=== PATIENT | female | born 1995 | race Caucasian/White ===

== ENCOUNTER 2017-01-02 03:35 | Emergency (ER) | payer MEDICAID ==
[~2017-01-02] VITALS: Ht 157.5 cm; Wt 52.2 kg
--- NOTE | 2017-01-02 03:45 | NUR ---
CALLED PT IN [place], NO REPONSE
--- NOTE | 2017-01-02 04:00 | NUR ---
CALLED PT IN [place], NO REPONSE
--- NOTE | 2017-01-02 04:35 | NUR ---
CALLED PT IN [place], NO REPONSE
[2017-01-02 05:01] VITALS: BP 121/77
[2017-01-02] MEDS ORDERED: METRONIDAZOLE 500 MG TABLET ONE (05:23)
[2017-01-02] MEDS ORDERED: CEFTRIAXONE 500 MG VIAL ONE (05:24)
[2017-01-02] MEDS ORDERED: AZITHROMYCIN 250 MG TABLET ONE (05:24)
[2017-01-02] MEDS ORDERED: LIDOCAINE /MPF 1% VIAL 5 ML VIAL ONE (05:24)
--- NOTE | 2017-01-02 05:24 | NUR ---
URINE SAMPLE SENT TO LAB.
[2017-01-02] MEDS ORDERED: CEFTRIAXONE 500 MG VIAL IM ONE (05:30)
[2017-01-02] MEDS ORDERED: METRONIDAZOLE 500 MG TABLET PO ONE (05:30)
[2017-01-02] MEDS ORDERED: AZITHROMYCIN 250 MG TABLET PO ONE (05:30)
[2017-01-02 05:33] LABS: APPEARANCE,URINE SL CLOUDY (CLEAR); BILIRUBIN,URINE NEGATIVE (NEGATIVE); BLOOD, URINE 1+ Ery/uL (NEGATIVE); COLOR,URINE YELLOW (YELLOW); KETONES,URINE NEGATIVE (NEGATIVE); LEUKOCYTE ESTERASE ,URINE NEGATIVE (NEGATIVE); NITRITE, URINE NEGATIVE (NEGATIVE); PROTEIN,URINE TRACE mg/dl (NEGATIVE); UGLUCOSE NEGATIVE (NEGATIVE); UROBILINOGEN,URINE 0.2 EU/dL (0.2)
[2017-01-02 05:46] LABS: BACTERIA,URINE 3+ /HPF (None Seen); SQUAMOUS EPITHELIAL CELL,UR Few /HPF (None Seen); WBC,URINE 0-2 /HPF (0-3)
[2017-01-02 05:47] LABS: PREGNANCY TEST URINE QUAL NEGATIVE (NEGATIVE)
--- NOTE | 2017-01-02 05:55 | NUR ---
PT LEFT WITHOUT DISCHARGE INSTRUCTIONS/ACI.
== END 2017-01-02 05:55 | disposition home or self-care (01) ==
LOC: ER 03:35
DX: Z20.2 Contact with and (suspected) exposure to infections with a predominantly sexual mode of transmission (principal); R82.99 Other abnormal findings in urine
CPT/HCPCS: 81001; 84703; 87086; 87491; 87591; 96372; 99284; A4606; J0696; J3490; Z7610; 81000-TC

== ENCOUNTER 2018-04-11 05:01 | Emergency (ER) | payer MEDICAID ==
[~2018-04-11] VITALS: Ht 152.4 cm; Wt 49.9 kg
[2018-04-11 05:19] VITALS: BP 110/59
--- NOTE | 2018-04-11 06:25 | NUR ---
Patient discharged to home in stable condition. Written and verbal after care instructions given. Patient verbalizes understanding of instruction.
== END 2018-04-11 06:26 | disposition home or self-care (01) ==
LOC: ER 05:03
DX: J03.90 Acute tonsillitis, unspecified (principal)
CPT/HCPCS: 99283; A4606; Z7610

== ENCOUNTER 2019-08-18 15:29 | Inpatient (IN) | payer MEDICAID ==
[~2019-08-18] VITALS: Ht 160 cm; Wt 72.6 kg
--- NOTE | 2019-08-18 17:02 | NUR ---
[id number] FROM THE STREETS C/O ABDOMINAL PAIN W NAUSEA AND VOMITING, PER EMS PT ADMITS TO HEROIN USE YESTERDAY. TO ER BED 4, HOOKED TO MONITOR, CHANGED TO HOSP GOWN, WARM BLAKET PROVIDED, AWAITING MD OZUNA.
--- NOTE | 2019-08-18 17:40 | NUR ---
ANIKA ESTEVES AT BEDSIDE
[2019-08-18] MEDS ORDERED: LORAZEPAM INJ 2 MG/ML VIAL IVP ONE (18:00)
[2019-08-18] MEDS ORDERED: ONDANSETRON HCL/PF 4 MG/2 ML VIAL IVP ONE (18:00)
[2019-08-18] MEDS ORDERED: IV NS 0.9% 1,000 ML BAG IV ONE ×4 (18:00→21:30)
[2019-08-18] MEDS ORDERED: ONDANSETRON HCL/PF 4 MG/2 ML VIAL ONE ×2 (18:06→21:45)
[2019-08-18] MEDS ORDERED: LORAZEPAM INJ 2 MG/ML VIAL ONE (18:06)
[2019-08-18 18:15] LABS: BASOPHILS % (AUTO) 1.2 % (0.0-2.0); EOSINOPHILS % (AUTO) 0.2 % (0.0-6.0); HEMATOCRIT 44 % (33-45); HEMOGLOBIN 14.1 g/dL (11.5-14.8); LYMPHOCYTES # (AUTO) 0.4 /CMM (0.8-4.8); LYMPHOCYTES % (AUTO) 11.4 % (20.0-44.0); MEAN CORPUSCULAR HGB CONC 32 g/dl (31.0-36.0); MEAN CORPUSCULAR VOLUME 78 fL (82-100); MONOCYTES % (AUTO) 0.7 % (2.0-12.0); NEUTROPHILS # (AUTO) 3.3 /CMM (1.8-8.9); NEUTROPHILS % (AUTO) 86.5 % (43.0-81.0); PLATELET COUNT (AUTO) 416 /CMM (150-450); RED BLOOD CELL COUNT(AUTO) 5.57 MIL/uL (4.0-5.2); WHITE BLOOD COUNT (AUTO) 3.8 K/uL (4.3-11.0)
[2019-08-18 18:37] LABS: ALANINE AMINOTRANSFERASE 17 U/L (12-78); ALBUMIN 2.6 g/dL (3.4-5.0); ALCOHOL, BLOOD < 3 mg/dL (0-0); ALKALINE PHOSPHATASE 124 U/L (46-116); ASPARTATE AMINOTRANSFERASE 18 U/L (15-37); BILIRUBIN,DIRECT 0.3 mg/dL (0.0-0.2); BILIRUBIN,TOTAL 0.8 mg/dL (0.2-1.0); CALCIUM, SERUM 8.9 mg/dL (8.5-10.1); CARBON DIOXIDE 18 mmol/L (21-32); CREATININE 2.1 mg/dL (0.6-1.3); GLUCOSE 91 mg/dL (74-106); TOTAL PROTEIN, SERUM 6.7 g/dL (6.4-8.2); UREA NITROGEN, BLOOD 20 mg/dL (7-18)
[2019-08-18 18:39] LABS: ACETAMINOPHEN 0 ug/ml (10-30); CHLORIDE 102 mmol/L (98-107); POTASSIUM 3.2 mmol/L (3.5-5.1); SODIUM SERUM 135 mmol/L (136-145)
[2019-08-18 18:45] LABS: EOSINOPHILS % (MANUAL) 1 % (0-4); LYMPHOCYTES % (MANUAL) 11 % (16-48); MONOCYTES % (MANUAL) 1 % (0-11.0); NEUTROPHILS % (MANUAL) 87 (42-76)
--- NOTE | 2019-08-18 19:38 | NUR ---
REPORT GIVEN TO LORETTA ELI FOR ANGEL
--- NOTE | 2019-08-18 19:55 | NUR ---
IN AND OUT CATH DONE. NO URINE OUTPUT NOTED. AND PA AWARE.
[2019-08-18] MEDS: LORAZEPAM INJ 2 MG/ML VIAL IV ONE ×2 (20:19→20:21)
[2019-08-18] MEDS: NALOXONE HCL 0.4 MG/ML AMPUL IV ONE ×2 (20:19→20:21)
[2019-08-18] MEDS ORDERED: KETOROLAC TROMETHAMINE INJ 60 MG/2 ML VIAL IM ONE (20:35)
--- NOTE | 2019-08-18 20:54 | NUR ---
PT TAKEN TO CT W/ RN
[2019-08-18] MEDS ORDERED: KETAMINE HCL(200MG/20ML) 10 MG/ML VIAL IV ONE (21:00)
--- NOTE | 2019-08-18 21:06 | NUR ---
PT BACK FROM CT W/ RT AND RN
[2019-08-18] MEDS ORDERED: PROPOFOL 100 ML ONE (21:17)
--- NOTE | 2019-08-18 21:19 | NUR ---
PT HAD AN EPISODE OF BILLOUS VOMMITING MODERATE AMOUNT. VERBAL ORDER FOR ZOFRAN 4MG IV X 1. NOTED AND CARRIED OUT
--- NOTE | 2019-08-18 21:21 | NUR ---
intubated 23 # lip et 7.5 bilat lung sound confirmed by
--- NOTE | 2019-08-18 21:50 | NUR ---
PT IS WAKING UP AND FIGHHTING VENT. MD WAS TA BEDSIDE. VERBAL ORDER RECEIVED TO GIVEN ANOTHER ETOMIDATE 20MO IV X 1. NOTED AND CARRIED OUT
[2019-08-18] MEDS ORDERED: PIPERACILLIN /TAZOBACTAM 3.375 G in IV D5W 50 ML IV ONE (22:00)
[2019-08-18] MEDS ORDERED: ONDANSETRON HCL/PF - ER 4 MG/2 ML VIAL IV ONE (22:00)
[2019-08-18] MEDS ORDERED: VANCOMYCIN 1 GM in IV D5W 250 ML IV ONE (22:00)
--- NOTE | 2019-08-18 22:01 | NUR ---
DR. WORRELL ON THE PHONE WITH DR. DEL TORO
[2019-08-18] MEDS ORDERED: MIDAZOLAM 50 MG/10 ML VIAL ONE (22:05)
[2019-08-18] MEDS: MIDAZOLAM HCL 100 MG in IV NS 0.9% 80 ML IV PRN ×3 (22:15→22:37)
--- NOTE | 2019-08-18 22:18 | NUR ---
etomidate 20mg ivp and succicholine 100mg ivp
--- NOTE | 2019-08-18 22:25 | NUR ---
PAGED CYLINDER HONER GEN SURGEON DR. VELA. DR. WORRELL ON PHONE WITH MIRIAN
[2019-08-18] MEDS ORDERED: PIPERACILLIN /TAZOBACTAM 3.375 G VIAL IV ONE (22:26)
[2019-08-18] MEDS ORDERED: FENTANYL CITRAT IV 2,500 MCG in IV NS 0.9% 200 ML IV PRN (22:30)
--- NOTE | 2019-08-18 22:47 | NUR ---
RT PATIENT WAS INTUBATED ON ER PER MD ORDER ON NOTED VENT SETTINGS .ALARMS ARE SET AND AND AUDIBLE. PATIENT TOLERATED CURRENT VENT SETTINGS . WILL CONTINUE TO MONITOR. Addendum: 08/18/19 at 2250 by LADONNA FRANCISCO RT Amended: Links added.
--- NOTE | 2019-08-18 22:49 | NUR ---
BED ASSIGNMENT 259
[2019-08-18] MEDS ORDERED: VANCOMYCIN 1 GM VIAL ONE (22:56)
[2019-08-18] MEDS ORDERED: IOHEXOL-350 100 ML VIAL IV ONE (23:00)
--- NOTE | 2019-08-18 23:00 | NUR ---
ct on radhika w/ with rn and rt @ bedside
[2019-08-18] MEDS ORDERED: NOREPINEPHRINE 4 MG/4 ML AMPUL IV ONE ×2 (23:06→23:37)
--- NOTE | 2019-08-18 23:09 | NUR ---
PT TO CT WITH ALCIRA BURGOS. PER DR WORRELL, VERBAL ORDER FOR LEVOPHED DOUBLE STRENGTH IV TITRATION TO KEEP SBP ABOVE 90. CURRENTLY BP 67/40.
--- NOTE | 2019-08-18 23:10 | NUR ---
OGT inserted. placement by auscultation and aspiration of yellowish greenish, billous gastric content
[2019-08-18 23:36] LABS: BASOPHILS % (AUTO) 0.2 % (0.0-2.0); EOSINOPHILS % (AUTO) 0.3 % (0.0-6.0); HEMATOCRIT 36 % (33-45); HEMOGLOBIN 11.2 g/dL (11.5-14.8); LYMPHOCYTES # (AUTO) 0.5 /CMM (0.8-4.8); LYMPHOCYTES % (AUTO) 3.8 % (20.0-44.0); MEAN CORPUSCULAR HGB CONC 31 g/dl (31.0-36.0); MEAN CORPUSCULAR VOLUME 81 fL (82-100); MONOCYTES # (AUTO) 0.1 /CMM (0.1-1.30); NEUTROPHILS % (AUTO) 94.7 % (43.0-81.0); PLATELET COUNT (AUTO) 283 /CMM (150-450); RED BLOOD CELL COUNT(AUTO) 4.43 MIL/uL (4.0-5.2); WHITE BLOOD COUNT (AUTO) 12.7 K/uL (4.3-11.0)
[2019-08-18 23:44] LABS: CALCIUM, SERUM 6.4 mg/dL (8.5-10.1); CREATININE 2.1 mg/dL (0.6-1.3); POTASSIUM 3.7 mmol/L (3.5-5.1)
[2019-08-18] MEDS: NOREPINEPHRINE 16 MG in IV D5W 500 ML IV PRN ×3 (23:48→23:58)
[2019-08-18 23:50] LABS: BILIRUBIN,DIRECT 0.3 mg/dL (0.0-0.2); BILIRUBIN,TOTAL 0.5 mg/dL (0.2-1.0); TOTAL PROTEIN, SERUM 3.7 g/dL (6.4-8.2)
[2019-08-19] VITALS (63 sets, daily range): BP systolic 35–166; BP diastolic 12–83
[2019-08-19] MEDS ORDERED: FLUCONAZOLE IN NS 100 MG in PREMIX 1 EA IV SCH ×2
[2019-08-19] MEDS ORDERED: Potassium Chloride 20 MEQ in IV D5/ 0.9% NACL 1,000 ML IV PRN ×2
[2019-08-19] MEDS ORDERED: PHENYLEPHRINE 20 MG in IV D5W 250 ML IV PRN ×2
[2019-08-19] MEDS ORDERED: MORPHINE SULFATE INJ 2 MG/ML DISP.SYRIN IV PRN
[2019-08-19] MEDS ORDERED: ACETAMINOPHEN 650 MG/SUPP.RECT RC PRN
[2019-08-19] MEDS: MIDAZOLAM HCL 100 MG in IV NS 0.9% 80 ML IV PRN ×2 (00:02→00:23)
[2019-08-19] MEDS: NOREPINEPHRINE 16 MG in IV D5W 500 ML IV PRN ×5 (00:05→20:15)
[2019-08-19 00:08] LABS: ALBUMIN 1.3 g/dL (3.4-5.0)
--- NOTE | 2019-08-19 00:15 | NUR ---
PICC LINE ON R IJ W/ 3 LUMEN
[2019-08-19] MEDS ORDERED: MEROPENEM 1 G in IV NS 0.9% 100 ML IV ONE (00:30)
[2019-08-19] MEDS ORDERED: VANCOMYCIN 1 GM in IV D5W 250ml IV ONE (00:30)
--- NOTE | 2019-08-19 00:30 | NUR ---
successfully inserted picc line w/ 3 lumen. xray enroute for placement
--- NOTE | 2019-08-19 00:52 | NUR ---
rt at bedside. o2 sat noted at 78% md aware
[2019-08-19] MEDS ORDERED: FENTANYL PF 100MCG/2ML AMPUL ONE (01:00)
[2019-08-19] MEDS ORDERED: FENTANYL PF 100MCG/2ML AMPUL IV PRN (01:30)
[2019-08-19] MEDS ORDERED: IV NS 0.9% 1,000 ML BAG IV PRN (01:30)
--- NOTE | 2019-08-19 01:44 | NUR ---
report given to amol zhang for jose roberto
--- NOTE | 2019-08-19 01:50 | NUR ---
PT HAS NOTED WITH TOTAL OF 425ML OF GASTRIC CONTENT FOR INTERMITENT SUCTIONING. BILLOUS, YELLOWISH AND GREENING.
--- NOTE | 2019-08-19 01:50 | NUR ---
PT TRANSPORTED TO UNIT ON GURNEY WITH EMT, RN ANT RT AT BEDSIDE USING ACLS PROTOCOL.
--- NOTE | 2019-08-19 01:51 | NUR ---
PT'S STILL ONLY ABOUT 15ML OF URINE IN SALDAÑA CATH TUBING DESPITE RECEIVING 5L OF NS SINCE RECEIVING THE PT. IS AWARE
--- NOTE | 2019-08-19 02:00 | NUR ---
TRANSPORT ANALYST, PT BEING ADMITTED FROM ER VIA [facility].ORALLY INTUBATED. RESPIRATORY FAILURE, SEPSIS. ETT 7.5,AC 16,FIO2 100%,PEEP 5. SAT 72%. MADE AWARE. OGT LOW INTERMITTENT AUCTION IV RT IJ TRIPLE LUMEN. FC PATENT. ANURIA. MD CADENA MADE AWARE.HOB ELEVATED. AFEBRILE. WILL CONTINUE TO MONITOR VITALS. PT IS VERY UNSTABLE,
[2019-08-19] MEDS ORDERED: MEROPENEM 1 G VIAL IV ONE (02:20)
--- NOTE | 2019-08-19 02:30 | NUR ---
agriculture manager pt is very tachypneic , heart rate is 141. . md loving at bed side assess the pt.. pt is very unstable.
[2019-08-19] MEDS ORDERED: FLUCONAZOLE IN NS 100 ML IV ONE (02:41)
[2019-08-19 03:07] LABS: ABG BASE EXCESS -18.8 mmol/L; ABG OXYGEN SATURATION 61.6 % (92.0-98.5); ABG PCO2 32.7 mmHg (35.0-45.0); ABG PH 7.096 (7.350-7.450); ABG PO2 39.1 mmHg (75.0-100.0); AaDO2 641.2 mmHg; COHb 0.3 % (0.5-1.5); MetHb 0.6 % (0.0-1.5); SITE, ABG Right Radial
[2019-08-19] MEDS: Sodium Bicarbonate 100 MEQ in IV 1/2NS 1000 ML 1,000 ML IV PRN ×2 (03:27→13:06)
[2019-08-19] MEDS ORDERED: PHENYLEPHRINE 10 MG/ML VIAL ONE (03:28)
[2019-08-19] MEDS: PHENYLEPHRINE 80 MG in IV D5W 250 ML IV PRN ×5 (03:37→20:44)
[2019-08-19] MEDS: MORPHINE SULFATE INJ 2 MG/ML DISP.SYRIN IV PRN ×2 (03:57→05:23)
--- NOTE | 2019-08-19 03:59 | NUR ---
PERIODONTIST. RADIOLOGIST CALLED FOR RESULT. ACUTE ABDOMEN, NOTIFIED MD CADENA. PAGED DR CHAMORRO SURGEON .
[2019-08-19] MEDS ORDERED: SUCCINYLCHOLINE CHLORIDE 20 MG/ML VIAL IV ONE ×2 (04:30→09:39)
[2019-08-19] MEDS ORDERED: ETOMIDATE 2 MG/ML VIAL IV ONE ×3 (04:30→09:39)
--- NOTE | 2019-08-19 04:48 | NUR ---
RT NOTE: RECEIVED PT ON ORDERED VENT SETTINGS AC RR 16 VT 450 PEEP + 5 @ 100% FIO2 FROM ER. PT HAS 7.5 ETT @ 25 CM @ LIPLINE. EVEN ON 100% PT SATS REMAINED IN THE 70'S. PT HAS FLUCTUATING B/P SO UNABLE TO GET MD ORDER TO MANIPULATE PEEP @ THIS TIME. ABG ORDERD BUT PT WAS A VERY HARD STICK IN BOTH RADIAL AND BRACHIAL SITE. ABLE TO OBTAIN PURPLE/RED BLOOD. RAN WITH CRITICAL VALUES NOTED AND POSSIBLE MIXTURE OF VENOUS BLOOD. RESULTS SHOWN TO MD. NO NEW RESPIRATORY ORDERS NOTED. RN GIVING MEDS IV PER MD. PT UNSTABLE @ THIS TIME. WILL CONTINUE TO MONITOR VERY CLOSELY..
[2019-08-19 05:17] LABS: HEMATOCRIT 40 % (33-45); HEMOGLOBIN 11.7 g/dL (11.5-14.8); LYMPHOCYTES # (AUTO) 1.3 /CMM (0.8-4.8); MEAN CORPUSCULAR HGB CONC 30 g/dl (31.0-36.0); MEAN CORPUSCULAR VOLUME 84 fL (82-100); MONOCYTES # (AUTO) 0.4 /CMM (0.1-1.30); NEUTROPHILS # (AUTO) 25.6 /CMM (1.8-8.9); PLATELET COUNT (AUTO) 383 /CMM (150-450); RED BLOOD CELL COUNT(AUTO) 4.72 MIL/uL (4.0-5.2); WHITE BLOOD COUNT (AUTO) 27.5 K/uL (4.3-11.0)
[2019-08-19 05:35] LABS: BILIRUBIN,TOTAL 0.3 mg/dL (0.2-1.0); CALCIUM, SERUM 6.6 mg/dL (8.5-10.1); MAGNESIUM 1.3 mg/dL (1.8-2.4); PHOSPHORUS 5.3 mg/dL (2.5-4.9); POTASSIUM 4.2 mmol/L (3.5-5.1); TOTAL PROTEIN, SERUM 4.6 g/dL (6.4-8.2)
--- NOTE | 2019-08-19 05:45 | NUR ---
sustainable agriculture specialist. heart rate and blood pressure dropped . versed turned off per md loving. . binta and vaso started, . pt is very unstable. 3 pressers max out. .
[2019-08-19] MEDS ORDERED: DOPamine 400MG/D5W 250ML RTU 0 ML IV ONE (05:49)
[2019-08-19] MEDS ORDERED: VASOPRESSIN INJ 20 UNIT/ML VIAL ONE (05:55)
[2019-08-19 06:02] LABS: ALBUMIN 1.4 g/dL (3.4-5.0)
[2019-08-19] MEDS: VASOPRESSIN INJ 50 UNIT in IV D5W 497.5 ML IV PRN ×2 (06:13→19:03)
[2019-08-19 06:30] LABS: BAND % (MANUAL) 27 % (0.0-5.0); LYMPHOCYTES % (MANUAL) 6 % (16-48); METAMYELOCYTES % 2 % (0-0); MONOCYTES % (MANUAL) 1 % (0-11.0); NEUTROPHILS % (MANUAL) 64 (42-76)
--- NOTE | 2019-08-19 07:15 | NUR ---
APPLIANCE LINE ASSEMBLER NOTES RECEIVED PATIENT INTUBATED IN PLACE SPO2 OF 85 % VIA MECHANICAL VENT SETTINGS OF AC 16 TV 450 FIO2 100 AND PEEP OF 5 , NON RESPONSIVE TO ANY STIMULI , PUPILS NON REACTIVE , GAG AND COUGH REFLEX ABSENT , GSC 3 , ST 135 ON BEDSIDE MONITOR , OGT ON LOW INTERMITTENT SUCTION DRAINING WITH GREENISH OUTPUT , FC DRAINING VIA GRAVITY NO OUTPUT NOTED , R IJ TLC WITH LEVOPHED @ 40MCG/MIN , NORSYNEPHRINE @ 300MCG/MIN , VASOPRESSIN @ 0.04 U/MIN , 1/2 NS WITH 2 AMPS SODIUM BICARBONATE @ 90ML/HR INFUSING WELL , IV OF R AC #20 AND L AC #[address] , PT ON MONITOR , CRASH CART AT BEDSIDE , DR VELA SEEN AND EVALUATED THE PT , DISCUSSED PT STATUS , ON LOW INTERMITTENT SUCTION DRAINING WITH GREENISH OUTPUT , DISCUSSED VITALS , LABS , AND IMAGING RESULT MD MELÉNDEZ
[2019-08-19] MEDS ORDERED: FEE PK DOSING 1 MIN EA MC ONE (07:26)
--- NOTE | 2019-08-19 07:30 | NUR ---
RT RECEIVED PT ORALLY INTUBATED, VENT DEPENDENT W/ ETT 7.5 MARKED @ 25CM LIP, WITH NOTED VENT SETTINGS. OCEAN LIFEGUARD DONE AND AIRWAY IS SECURE. VENT ALARMS CHECKED AND AUDIBLE. VENT PLUGGED IN RED OUTLET. AMBU BAG NOTED HOB. LUZ B/S RHONCHI, SX W/ SML TO MOD THK HUNTER SECRETIONS. WILL CONTINUE TO MONITOR T/O SHIFT.
--- NOTE | 2019-08-19 08:35 | NUR ---
CORN MILLER NOTES SEEN AND EVALUATED BY DR VO , DISCUSSED PT HISTORY CHIEF COMPLAINT , LABS , PT ON 3 PRESSORS OF LEVO , GLORIA AND VASO ON MAXIMUM , VENT SETTING AND ABG AND IMAGING RESULT , MD AWARE . ORDERED TO GIVE 3 AMPS OF SODIUM BICARB IVP , ORDER CARRIED OUT
[2019-08-19 08:39] LABS: ABG BASE EXCESS -21.6 mmol/L; ABG OXYGEN SATURATION 84.5 % (92.0-98.5); ABG PH 7.024 (7.350-7.450); ABG PO2 57.9 mmHg (75.0-100.0); AaDO2 622.1 mmHg; MetHb 0.7 % (0.0-1.5); O2Hb 83.9 % (94.0-97.0); SITE, ABG Other; VT, ABG 450 mL
--- NOTE | 2019-08-19 08:45 | NUR ---
RT ABG WAS DONE, RESULTS RELAYED TO RN AND DR VO. NO CHANGES.
--- NOTE | 2019-08-19 08:47 | NUR ---
ADVERTISING STRATEGIST NOTES SEEN AND EVALUATED BY ANA , DISCUSSED PT CC , HISTORY , LABS , IMAGING RESULTS, ABG , NON RESPONSIVE , GCS OF 3 ABSENT COUGH AND GAG REFLEX , PUPILS NON REACTIVE , ON LEVO GLORIA , VASO MAXIMUM AMOUNT , NO URINE OUTPUT , ON VENT SETTINGS WITH AC 16 TV 450 FIO2 100% AND PEEP OF 5 , NOTIFIED MAGNESIUM LEVEL , PER OB/GYN PHYSICIAN REPLACED IT WITH 4GM OF MAGNESIUM , OB/GYN PHYSICIAN AWARE , WILL ORDER ID , NEPHRO CONSULT .
[2019-08-19] MEDS ORDERED: PANTOPRAZOLE 40 MG VIAL IV SCH (09:00)
[2019-08-19] MEDS ORDERED: SODIUM BICARBONATE SYR 50 MEQ/50 ML DISP.SYRIN IV ONE (09:00)
[2019-08-19] MEDS: Magnesium 1GM/D5W 100ML PREMIX 100 ML IV SCH ×4 (09:05→12:29)
[2019-08-19] MEDS: ALBUMIN 25% 25 GM in PREMIX 1 EA IV SCH ×3 (09:27→20:16)
--- NOTE | 2019-08-19 09:46 | NUR ---
ROOF CEMENT AND PAINT MAKER NOTES SEEN AND EVALUATED BY DR WOLF , DISCUSSED ABG , LABS , IMAGING , PT ON 3 PRESSORS OF LEVO , GLORIA AND VASO ON MAXIMUM AMOUNT , ON 1/2 NS @ 90ML/HR WITH 2AMPS OF SODIUM BICARBONATE , NO URINE OUTPUT , MAGNESIUM BEING REPLACED WITH 4 GMS , K WNL , PER MD ORDER CPKMB , INCREASE 1/2 NS WITH 2 AMPS OF SODIUM BICARBONATE @ 150ML/HR AND ORDER ABG , BPM @ 1200 , IF PT REMAINS ACIDOTIC PT NEEDS TO DO HD , WILL CONTINUE TO MONITOR
[2019-08-19 12:07] LABS: APPEARANCE,URINE SL CLOUDY (CLEAR); BILIRUBIN,URINE SMALL (NEGATIVE); BLOOD, URINE LARGE Ery/uL (NEGATIVE); KETONES,URINE TRACE (NEGATIVE); LEUKOCYTE ESTERASE ,URINE TRACE (NEGATIVE); NITRITE, URINE POSITIVE (NEGATIVE); PH,URINE 5.5 (5.0-8.0); PROTEIN,URINE >=300 mg/dl (NEGATIVE); UGLUCOSE NEGATIVE (NEGATIVE)
[2019-08-19 12:09] LABS: COLOR,URINE AMBER (YELLOW)
[2019-08-19 12:27] LABS: ABG BASE EXCESS -12.1 mmol/L; ABG OXYGEN SATURATION 88.4 % (92.0-98.5); ABG PH 7.246 (7.350-7.450); ABG PO2 54.1 mmHg (75.0-100.0); AaDO2 625.9 mmHg; COHb 0.2 % (0.5-1.5); O2Hb 87.3 % (94.0-97.0); PEEP,BG 5 cm H2O; SITE, ABG Left Femoral; VT, ABG 450 mL
--- NOTE | 2019-08-19 12:30 | NUR ---
RT ABG DONE PER MD ORDER, RESULTS RELAYED TO ORDERING MD AND RN, NO CHANGES MADE.
--- NOTE | 2019-08-19 12:43 | NUR ---
DEVELOPMENT OFFICER NOTES NOTIFIED DR PAGE REGARDING ABG RESULT S/P 3 AMPS SODIUM BICARBONATE IVP , WITH 1/2 NS WITH 100 MEQ SODIUM BICARBONATE @ 150ML/HR , AWARE NO NEW ORDERS RECIEVED NOTIFIED DR VO REGARDING ABG RESULT @ 1200 , WITH VENT SETTINGS ORDERED , AWAITING FOR CALL BACK Addendum: 08/19/19 at 1257 by LAURA ARANDA RN DR VO RESPOND , NO NEW ORDERS RECEIVED
--- NOTE | 2019-08-19 13:24 | NUR ---
BIOMETRICS ANALYST NOTES VERIFIED WITH GEOFF VISUAL DEVELOPER IF HE WANTS REPEAT ABG ANDBMP @ 1500 ABG AND BMP WAS DRAWN @ 1200 , PER VISUAL DEVELOPER CHANGE TIME TO 1800 , ORDERS CARRIED OUT
--- NOTE | 2019-08-19 13:28 | NUR ---
TURN DOWN MAN NOTES CALLED @ [phone] AND [phone] , LEFT A MESSAGE
[2019-08-19 13:41] LABS: CALCIUM, SERUM 6.4 mg/dL (8.5-10.1); CREATININE 4.1 mg/dL (0.6-1.3); POTASSIUM 4.5 mmol/L (3.5-5.1)
[2019-08-19 13:57] LABS: BACTERIA,URINE Moderate /HPF (None Seen); SQUAMOUS EPITHELIAL CELL,UR Few /HPF (None Seen)
[2019-08-19 14:00] LABS: EOSINOPHIL,URINE None Seen
[2019-08-19] MEDS ORDERED: MEROPENEM 1 G in IV NS 0.9% 100 ML IV SCH (14:00)
[2019-08-19] MEDS ORDERED: DOSE PER PHARMACY MICAFUNGIN 1 EA XX PRN (15:30)
[2019-08-19] MEDS ORDERED: MICAFUNGIN SODIUM 100 MG in IV NS 0.9% 100 ML IV SCH (16:00)
--- NOTE | 2019-08-19 16:00 | NUR ---
VETERANS EMPLOYMENT REPRESENTATIVE NOTES SPOKE WITH ANA NOTIFIED TEMP OF 105F , PT ON COOLING MEASURES , WILL CONTINUE TO MONITOR
--- NOTE | 2019-08-19 16:50 | NUR ---
MANAGER FOOD BEVERAGE NOTES CALLED [facility] , PT GCS OF 3 , SPOKE WITH CELINA DISCUSSED PT STATUS , LABS , CHEST XRAY , REFERENCE # [id number]
[2019-08-19] MEDS ORDERED: VANCOMYCIN 0.75 GM in IV D5W 250 ML IV SCH (17:00)
[2019-08-19 18:25] LABS: BASOPHILS # (AUTO) 0.1 /CMM (0.0-0.2); BASOPHILS % (AUTO) 0.4 % (0.0-2.0); EOSINOPHILS % (AUTO) 0.2 % (0.0-6.0); HEMATOCRIT 41 % (33-45); HEMOGLOBIN 11.8 g/dL (11.5-14.8); LYMPHOCYTES # (AUTO) 5.8 /CMM (0.8-4.8); LYMPHOCYTES % (AUTO) 27.6 % (20.0-44.0); MEAN CORPUSCULAR HGB CONC 29 g/dl (31.0-36.0); MEAN CORPUSCULAR VOLUME 87 fL (82-100); MONOCYTES % (AUTO) 4.9 % (2.0-12.0); NEUTROPHILS % (AUTO) 66.9 % (43.0-81.0); PLATELET COUNT (AUTO) 128 /CMM (150-450); RED BLOOD CELL COUNT(AUTO) 4.73 MIL/uL (4.0-5.2)
[2019-08-19 18:52] LABS: CALCIUM, SERUM 6.6 mg/dL (8.5-10.1); CREATININE 4.6 mg/dL (0.6-1.3)
[2019-08-19 18:59] LABS: POTASSIUM 6.4 mmol/L (3.5-5.1)
[2019-08-19] MEDS ORDERED: INSULIN REGULAR, HUMAN 100 UNIT/ML 3 ML VIAL IV ONE (19:30)
[2019-08-19] MEDS ORDERED: DEXTROSE 50%-WATER 50 ML DISP.SYRIN IVP ONE ×2 (19:30→20:00)
[2019-08-19] MEDS ORDERED: Calcium Gluconate 0.465 MEQ/ML VIAL IV ONE ×2 (19:30)
--- NOTE | 2019-08-19 19:30 | NUR ---
PRODUCTION OPERATIONS INSPECTOR INITIAL SHIFT NOTES RECEIVED PATIENT IN BED, EYES CLOSED, NONRESPONSIVE. PATIENT ORALLY INTUBATED, ON MECHANICAL VENTILATION SETTINGS AC 16, TV 450, FIO2 @ 100% PEEP +5. BREATHING EVEN AND NONLABORED, TOLERATING VENT SETTINGS WELL. NO GAG OR COUGH REFLEX WHEN SUCTIONED VIA ETT, NO PUPILLARY REACTION TO LIGHT. SCRAP SORTER SHOWS SINUS TACHYCARDIA WITH BBB, HR CURRENTLY 131 BPM. CENTRAL LINE TO RIGHT JUGULAR, ONGOING IV INFUSION OF MAX DOSES OF LEVOPHED, NEOSYNEPHRINE AND VASOPRESSIN DRIPS, WITH BICARB DRIP @ 150ML/HR. SALDAÑA CATHETER PATENT AND INTACT, NO URINE OUTPUT NOTED. OGT PATENT AND INTACT, CURRENTLY CONNECTED TO LOW INTERMITTENT WALL SUCTION, NOTED WITH GREENISH/BILIOUS OUTPUT.
--- NOTE | 2019-08-19 19:34 | NUR ---
INDUSTRIAL TRUCK MECHANIC NOTES SPOKE WITH DR WILDER , DISCUSSED CRITICAL LABS OF K 6.4 , GLUCOSE 21 , CA OF 6.6 , MD ORDERED 6 UNITS REGULAR INSULIN IVP , 2GM CALCIUM GLUCONATE , D50 X2 , AND CHANGE IVF TO D52 WITH 150MEQ SODIUM BICARBONATE @ 150ML/HR
[2019-08-19 19:38] LABS: LYMPHOCYTES % (MANUAL) 29 % (16-48); MONOCYTES % (MANUAL) 11 % (0-11.0); NEUTROPHILS % (MANUAL) 59 (42-76); REACTIVE LYMPHOCYTES 1 % (0-0)
[2019-08-19] MEDS ORDERED: Sodium Bicarbonate 150 MEQ in IV D5W 1,000 ML IV PRN (20:00)
--- NOTE | 2019-08-19 20:00 | NUR ---
INSPECTOR WEIGHTS AND MEASURES NOTES SPO2 IN THE 80s, [facility] STAFF AT BEDSIDE FOR EVALUATION. REQUEST BY [facility] TO INCREASE PEEP TO 10. DR VO NOTIFIED REGARDING SUGGESTION TO INCREASE PEEP TO 10. ORDER OBTAINED FROM DR VO TO INCREASE PEEP TO 10, RT MARIE NOTIFIED, [facility] NOTIFIED REGARDING NEW ORDERS
[2019-08-19] MEDS ORDERED: SODIUM BICARBONATE SYR 50 MEQ/50 ML DISP.SYRIN ONE (20:04)
[2019-08-19] MEDS ORDERED: FEE EMEERGENCY 1 MIN EA MC ONE (23:52)
[2019-08-19] MEDS ORDERED: EPINEPHRINE (1:10,000) SYRINGE 1 MG/10 ML DISP.SYRIN IVP ONE (23:52)
--- NOTE | 2019-08-19 23:53 | NUR ---
WELL DRILL OPERATOR ROTARY DRILL NOTES 2345: PATIENT NOTED TO FANTASMA DOWN TO 46BPM, THEN WENT INTO ASYSTOLE, NO PULSES PALPABLE, NO PULSE WITH USE OF DOPPLER EITHER. CODE JASWANT CALLED 235: AFTER HIGH QUALITY CPR, 3 ROUNDS OF EPI, NO RETURN OF ROSC. TIME OF 2352, CALLED BY ER PHYSICIAN, DR. JAMIR GEORGE. PUPILS FIXED AND DILATED, ASYSTOLE ON MONITOR, NO PULSES PALPATED, NO HEART TONES HEARD UPON AUSCULTATION. ATTEMPTED TO CALL DORA VILLANUEVA [phone], WELL NEXT OF KIN JOVANNA SUAREZ [phone]. UNABLE TO REACH EITHER FAMILY MEMBER, UNABLE TO LEAVE MESSAGE. RESOURCE RECOVERY ENGINEER JAMAL NOTIFIED, DR CADENA NOTIFIED, ADMITTING NOTIFIED. EXISTING CASE WITH [employer], SPOKE TO , CASE # [id number].PER [facility] PATIENT IS NOT A CANDIDATE FOR TISSUE DONATION. HOWEVER, PATIENT IS A REVENUE CYCLE ADMINISTRATOR'S CASE, #[id number]. POST MORTEM CARE RENDERED 0200: 3RD ATTEMPT TO REACH FAMILY MEMBERS, UNABLE TO REACH. PATIENT REMAINS [place] [facility] WITH SECURITY AND CHARGE NURSE.
== END 2019-08-19 23:53 | disposition expired | DRG 720 ==
LOC: ER 15:29 → ICU 22:57
PROVIDERS: ADMIT Internal Medicine; ATTEND Nurse Practitioner Acute Care
PROC: B548ZZA Ultrasonography of Superior Vena Cava, Guidance (ICD-10-PCS; principal; 2019-08-18)
PROC: 02HV33Z Insertion of Infusion Device into Superior Vena Cava, Percutaneous Approach (ICD-10-PCS; principal; 2019-08-18)
PROC: 5A1945Z Respiratory Ventilation, 24-96 Consecutive Hours (ICD-10-PCS; principal; 2019-08-18)
PROC: 0BH18EZ Insertion of Endotracheal Airway into Trachea, Via Natural or Artificial Opening Endoscopic (ICD-10-PCS; principal; 2019-08-18)
DX: A41.9 Sepsis, unspecified organism (principal); I21.A1 Myocardial infarction type 2; J69.0 Pneumonitis due to inhalation of food and vomit; E43 Unspecified severe protein-calorie malnutrition; N17.0 Acute kidney failure with tubular necrosis; J96.01 Acute respiratory failure with hypoxia; J96.02 Acute respiratory failure with hypercapnia; K65.0 Generalized (acute) peritonitis; R64 Cachexia; R65.21 Severe sepsis with septic shock; E83.39 Other disorders of phosphorus metabolism; I95.9 Hypotension, unspecified; G92 Toxic encephalopathy; E87.2 Acidosis; E87.6 Hypokalemia; E83.42 Hypomagnesemia; F17.210 Nicotine dependence, cigarettes, uncomplicated; D64.9 Anemia, unspecified; K42.9 Umbilical hernia without obstruction or gangrene; F19.10 Other psychoactive substance abuse, uncomplicated
CPT/HCPCS: 31720; 36415; 36600; 71045-TC; 80048-TC; 80053-TC; 80074; 80076-TC; 81000-TC; 82550-TC; 82803-TC; 82962-TC; 83540-TC; 83605-TC; 83690-TC; 83735-TC; 84100-TC; 84484-TC; 84702-TC; 84703-TC; 85025-TC; 85378-TC; 87040-TC; 87070-TC; 87086-TC; 87186-TC; 93307-TC; A4216; A6253; A6403; C1751; C9113; G0378; G0480; J0171; J0330; J0610; J1265; J1450; J1815; J1885; J2060; J2185; J2248; J2250; J2270; J2310; J2370; J2405; J2543; J3010; J3370; J3475; J3480; J3490; J7030; J7040; J7042; J7050; J7060; J7070; P9047; Q9967